=== PATIENT | female | born 1940 | race Caucasian/White ===

== ENCOUNTER → 2019-01-04 | Outpatient (CLI) | payer MEDICARE, OTHER ==
--- NOTE | 2019-01-04 15:54 | KCIC ---
Examination: MRI of the right forefoot without contrast HISTORY: History of right foot pain, open wound medial to the first digit COMPARISON: None available Technique: Multiplanar, multisequence MR imaging of the right forefoot were performed without contrast FINDINGS: The alignment of the metatarsophalangeal joints, interphalangeal joints grossly appears unremarkable. There is no acute fracture or dislocation identified. There is a small skin ulcer identified medial to the first metatarsal. No evidence of cortical disruption identified to suggest osteomyelitis. The visualized Lisfranc ligament appears intact. Mild degenerative changes identified in the metatarsophalangeal joints, interphalangeal joints. IMPRESSION: 1. Small skin ulcer identified medial to the first metatarsal without evidence of osteomyelitis. Electronically signed by: Raf Rolle MD (01/04/2019 3:51 PM) [id number]
== END | disposition home or self-care (01) ==
LOC: KCIC MRI 13:24
PROVIDERS: ATTEND Physician Assistant
DX: L97.519 Non-pressure chronic ulcer of other part of right foot with unspecified severity (principal)
CPT/HCPCS: 73718